=== PATIENT | male | born 1950 | race Caucasian/White ===

== ENCOUNTER 2017-04-14 17:06 | Emergency (ER) | payer MEDICARE ==
[2017-04-14] MEDS ORDERED: Zofran 4 MG/2 ML VIAL IV ONE (17:28)
[2017-04-14] MEDS ORDERED: Sodium Chloride 0.9% 1000 ML 1,000 ML IV STA ×2 (17:28→18:37)
[2017-04-14] MEDS ORDERED: Zofran 4 MG/2 ML VIAL ONE (17:33)
[2017-04-14] MEDS ORDERED: Sodium Chloride 0.9% 1000 ML 1,000 ML ONE ×2 (17:33→18:39)
--- NOTE | 2017-04-14 17:37 | ERPHSYRPT ---
- History of Present Illness Time Seen by Provider: 04/14/17 17:20 Historian: patient Exam Limitations: clinical condition Patient Subjective Stated Complaint: vomiting/diarrhea for three days, also having fever at home. Triage Nursing Assessment: ambulated to room per self. skin w/d, pale. patient retching on arrival. abd soft/ normal bowel sounds. Physician History: PATIENT WITH HISTORY OF TYPE 2 DIABETES AND LEFT NEPHRECTOMY, COMPLAINS OF FREQUENT EPISODES OF EMESIS AND WATERY DIARRHEA X 3-4 DAYS ASSOCIATED WITH GENERALIZED WEAKNESS AND CRAMPY ABDOMINAL PAIN. DENIES FEVER, CHILLS, COUGH OR URINARY SYMPTOMS. Timing/Duration: day(s) Activities at Onset: none Quality: cramping Abdominal Pain Onset Location: generalized abdomen Pain Radiation: no radiation Severity of Pain-Max: moderate Severity of Pain-Current: moderate Modifying Factors: Improves With: vomiting, other (DIARRHEA) Associated Symptoms: fatigue, nausea, vomiting, weakness Previous symptoms: no prior history Allergies/Adverse Reactions: sulfamethoxazole [From Bactrim] Allergy (Mild, Verified 04/14/17 17:17) trimethoprim [From Bactrim] Allergy (Mild, Verified 04/14/17 17:17) Home Medications: Loratadine [Claritin] 10 mg PO DAILY 01/12/13 [History] Metformin HCl 500 mg [Glucophage 500 MG] 500 mg PO DAILY 01/12/13 [History ] Ranitidine HCl [Zantac] 150 mcg PO DAILY PRN 01/12/13 [History] Omeprazole [Prilosec] 1 tab PO DAILY 07/24/15 [History] Hx Tetanus, Diphtheria Vaccination/Date Given: No Hx Influenza Vaccination/Date Given: Yes Hx Pneumococcal Vaccination/Date Given: Yes - Review of Systems Constitutional: Weakness, No Fever, No Chills Eyes: No Symptoms Ears, Nose, & Throat: No Symptoms Respiratory: No Symptoms, No Cough, No Dyspnea Cardiac: No Symptoms, No Chest Pain, No Edema, No Syncope Abdominal/Gastrointestinal: Abdominal Pain, Nausea, Vomiting, Diarrhea Genitourinary Symptoms: No Symptoms, No Dysuria Musculoskeletal: No Back Pain, No Neck Pain Skin: No Symptoms, No Rash Neurological: No Dizziness, No Focal Weakness, No Sensory Changes Psychological: No Symptoms Endocrine: No Symptoms All Other Systems: Reviewed and Negative - Past Medical History Pertinent Past Medical History: Yes Neurological History: No Pertinent History ENT History: Cataracts Cardiac History: No Pertinent History Respiratory History: No Pertinent History Endocrine Medical History: Diabetes Type II Musculoskeletal History: Arthritis GI Medical History: GERD, Hernia, Polyps History: No Pertinent History Psycho-Social History: No Pertinent History Male Reproductive Disorders: No Pertinent History Other Medical History: Hiatal Hernia - Past Surgical History Past Surgical History: Yes Neuro Surgical History: No Pertinent History Cardiac: Cardiac Catheterization Respiratory: No Pertinent History Gastrointestinal: No Pertinent History Genitourinary: Kidney Surgery, Other Musculoskeletal: Orthopedic Surgery Male Surgical History: No Pertinent History Other Surgical History: christen dow only has one kidney,Tonsillectomy. Rotator cuff repair - Social History Smoking Status: Current every day smoker How long have you smoked: 50years Exposure to second hand smoke: Yes Drug Use: none Patient Lives Alone: Yes - Nursing Vital Signs Nursing Vital Signs: Initial Vital Signs Temperature 97.4 F Temperature Source Oral Pulse Rate 80 Respiratory Rate 16 Blood Pressure [] 130/76 Pain Intensity 0 - Physical Exam General Appearance: no apparent distress, alert Eye Exam: PERRL/EOMI, eyes nml inspection Ears, Nose, Throat Exam: normal ENT inspection, pharynx normal, moist mucous membranes Neck Exam: normal inspection, non-tender, supple, full range of motion Respiratory Exam: normal breath sounds, lungs clear, No respiratory distress Cardiovascular Exam: regular rate/rhythm, normal heart sounds Gastrointestinal/Abdomen Exam: soft, normal bowel sounds, tenderness (MINIMAL PERIUMBILICAL TENDERNESS, NO GUARDING OR REBOUND TENDERNESS), No mass Back Exam: normal inspection, normal range of motion, No CVA tenderness, No vertebral tenderness Extremity Exam: normal inspection, normal range of motion, pelvis stable Neurologic Exam: alert, oriented x 3, cooperative, normal mood/affect, nml cerebellar function, sensation nml, No motor deficits Skin Exam: normal color, warm, dry SpO2 Interpretation: normal SpO2: 97 Oxygen Delivery: Room Air - CT Exams Abdomen/Pelvis CT Interpretation: Tele-radiologist Report (THERE IS AN OBSTRUCTING 7.4MM STONE MID RIGHT URETER, AND A 2CM RIGHT RENAL STONE, LEFT NEPHRECTOMY) Ordered Tests: Active Orders 24 hr Category Date Time Status Clean Catch Urine Specimen STAT Care 04/14/17 17:28 Active IV Insertion STAT Care 04/14/17 17:28 Active ABDOMEN AND PELVIS W/0 CONTRAS [CT] Stat Exams 04/14/17 17:29 Taken AMYLASE Stat Lab 04/14/17 17:18 Completed BLOOD CULTURE Stat Lab 04/14/17 17:18 Received CBC W DIFF Stat Lab 04/14/17 17:18 Completed CMP Stat Lab 04/14/17 17:18 Completed CULTURE,URINE Stat Lab 04/14/17 17:46 Received LIPASE Stat Lab 04/14/17 17:18 Completed Lactic Acid Stat Lab 04/14/17 17:45 Results Manual Differential NC Stat Lab 04/14/17 17:18 Completed UA W/ MICROSCOPIC Stat Lab 04/14/17 17:46 Completed Medication Summary Discontinued Medications Generic Name Dose Route Start Last Admin Trade Name Freq PRN Reason Stop Dose Admin Fentanyl Citrate 50 mcg 04/14/17 18:44 04/14/17 18:49 Sublimaze 100 Mcg/2 Ml IV 04/14/17 18:45 50 mcg STAT ONE Administration Fentanyl Citrate Confirm 04/14/17 18:48 Sublimaze 100 Mcg/2 Ml Administered 04/14/17 18:49 Dose 100 mcg .ROUTE .STK-MED ONE Sodium Chloride 1,000 mls @ 999 mls/hr 04/14/17 17:28 04/14/17 17:35 Sodium Chloride 0.9% 1000 Ml IV 04/14/17 18:28 999 mls/hr .Q1H1M STA Administration Sodium Chloride Confirm 04/14/17 17:33 Sodium Chloride 0.9% 1000 Ml Administered 04/14/17 17:34 Dose 1,000 mls @ ud .ROUTE .STK-MED ONE Ceftriaxone Sodium/Dextrose 1 g in 50 mls @ 100 mls/hr 04/14/17 18:09 18:20 Rocephin 1 Gm-D5w 50 Ml Bag IV 04/14/17 18:38 100 mls/hr STAT STA Administration Ceftriaxone Sodium/Dextrose Confirm 04/14/17 18:18 Rocephin 1 Gm-D5w 50 Ml Bag Administered 04/14/17 18:19 Dose 1 g in 50 mls @ ud IV .STK-MED ONE Sodium Chloride 1,000 mls @ 999 mls/hr 04/14/17 18:37 04/14/17 18:39 Sodium Chloride 0.9% 1000 Ml IV 04/14/17 19:37 999 mls/hr .Q1H1M STA Administration Sodium Chloride Confirm 04/14/17 18:39 Sodium Chloride 0.9% 1000 Ml Administered 04/14/17 18:40 Dose 1,000 mls @ ud .ROUTE .STK-MED ONE Ondansetron HCl 4 mg 04/14/17 17:28 04/14/17 17:34 Zofran 4 Mg/2 Ml Vial IV 04/14/17 17:29 4 mg STAT ONE Administration Ondansetron HCl Confirm 04/14/17 17:33 Zofran 4 Mg/2 Ml Vial Administered 04/14/17 17:34 Dose 4 mg .ROUTE .STK-MED ONE Lab/Rad Data: Laboratory Result Diagrams 04/14/17 17:18 04/14/17 17:18 Laboratory Results 04/14/17 04/14/17 04/14/17 Range/Units 17:46 17:45 17:18 WBC (4.0-10.5) K/mm3 RBC (4.1-5.6) M/mm3 Hgb (12.5-18.0) gm/dl Hct (42-50) % MCV (78-100) fl MCH (26-32) pg MCHC (32-36) g/dl RDW (11.5-14.0) % Plt Count (150-450) K/mm3 MPV (6-9.5) fl Sodium 138 (136-145) mEq/L Potassium 3.9 (3.5-5.1) mEq/L Chloride 99 (98-107) mEq/L Carbon Dioxide 27.4 (21-32) mEq/L Anion Gap 15.5 H (5-15) MEQ/L BUN 14 (9-20) mg/dL Creatinine 1.11 (0.55-1.30) mg/dl Estimated GFR > 60 ML/MIN Glucose 191 H (70-110) MG/DL Lactic Acid 2.4 H (0.4-2.0) Calcium 9.1 (8.5-10.1) mg/dL Total Bilirubin 0.70 (0.2-1.0) mg/dL AST 124 H (15-37) U/L ALT 249 H (12-78) U/L Alkaline Phosphatase 317 H (46-116) U/L Serum Total Protein 7.6 (6.4-8.2) gm/dL Albumin 3.4 (3.4-5.0) g/dL Amylase 64 (25-115) U/L Lipase 82 (73-393) U/L Ur Collection Type CCMS Urine Color YELLOW (YELLOW) Urine Appearance CLEAR (CLEAR) Urine pH 5.0 (5-6) Ur Specific Waka 1.030 (1.005-1.025) Urine Protein 30 (Negative) Urine Ketones LARGE-80 (NEGATIVE) Urine Blood 250 (0-5) Vargas/ul Urine Nitrite NEGATIVE (NEGATIVE) Urine Bilirubin NEGATIVE (NEGATIVE) Urine Urobilinogen NORMAL (0-1) mg/dL Ur Leukocyte Esterase NEGATIVE (NEGATIVE) Urine Microscopic RBC >100 (0-2) /HPF Urine Microscopic WBC 10-15 (0-5) /HPF Ur Epithelial Cells RARE (FEW) /HPF Urine Bacteria FEW (NEGATIVE) /HPF Urine Glucose NEGATIVE (NEGATIVE) mg/dL Specimen Received 04-14-17 1800 04/14/17 Range/Units 17:18 WBC 3.5 L (4.0-10.5) K/mm3 RBC 5.48 (4.1-5.6) M/mm3 Hgb 18.1 H (12.5-18.0) gm/dl Hct 51.9 H (42-50) % MCV 94.7 (78-100) fl MCH 33.0 H (26-32) pg MCHC 34.9 (32-36) g/dl RDW 13.0 (11.5-14.0) % Plt Count 44 L (150-450) K/mm3 MPV 12.5 H (6-9.5) fl Sodium (136-145) mEq/L Potassium (3.5-5.1) mEq/L Chloride (98-107) mEq/L Carbon Dioxide (21-32) mEq/L Anion Gap (5-15) MEQ/L BUN (9-20) mg/dL Creatinine (0.55-1.30) mg/dl Estimated GFR ML/MIN Glucose (70-110) MG/DL Lactic Acid (0.4-2.0) Calcium (8.5-10.1) mg/dL Total Bilirubin (0.2-1.0) mg/dL AST (15-37) U/L ALT (12-78) U/L Alkaline Phosphatase (46-116) U/L Serum Total Protein (6.4-8.2) gm/dL Albumin (3.4-5.0) g/dL Amylase (25-115) U/L Lipase (73-393) U/L Ur Collection Type Urine Color (YELLOW) Urine Appearance (CLEAR) Urine pH (5-6) Ur Specific Waka (1.005-1.025) Urine Protein (Negative) Urine Ketones (NEGATIVE) Urine Blood (0-5) Vargas/ul Urine Nitrite (NEGATIVE) Urine Bilirubin (NEGATIVE) Urine Urobilinogen (0-1) mg/dL Ur Leukocyte Esterase (NEGATIVE) Urine Microscopic RBC (0-2) /HPF Urine Microscopic WBC (0-5) /HPF Ur Epithelial Cells (FEW) /HPF Urine Bacteria (NEGATIVE) /HPF Urine Glucose (NEGATIVE) mg/dL Specimen Received - Progress Progress Note: 04/14/17 17:37 PATIENT GIVEN IV FLUIDS NORMAL SALINE 1 LITER BOLUS OVER 1 HOUR X 2 THEN 250MG/ HR, ZOFRAN 4MG IV, FENTANYL 50MCG IV 04/14/17 18:47 AFTER 2 SETS OF BLOOD CULTURES, ROCEPHIN 1GM IVPB Discussed with DrZan: Other (DISCUSSED WITH DR GARCIA AT 1910 OF [facility] ACCEPTS TRANSFER VIA [facility]) - Departure Time of Disposition: 19:43 Departure Disposition: Transfer Clinical Impression: MID RIGHT URETER CALCULUS, DEHYDRATION, INTRACTABLE EMESIS/DIARRHEA, URINARY TRACT INFECTION Condition: Stable Critical Care Time: No Referrals: HARISH BUENROSTRO MD [Primary Care Provider] -
[2017-04-14 17:43] LABS: Mean Cell Volume 94.7 fl (78-100); Mean Platelet Volume 12.5 fl (6-9.5); Platelet Count 44 K/mm3 (150-450); Red Blood Count 5.48 M/mm3 (4.1-5.6); White Blood Count 3.5 K/mm3 (4.0-10.5)
[2017-04-14 17:48] LABS: Lactic Acid 2.4 (0.4-2.0)
[2017-04-14 17:57] LABS: ALBUMIN 3.4 g/dL (3.4-5.0); ALKALINE PHOSPHATASE 317 U/L (46-116); ANION GAP 15.5 MEQ/L (5-15); BLOOD UREA NITROGEN 14 mg/dL (9-20); CHLORIDE 99 mEq/L (98-107); Carbon Dioxide 27.4 mEq/L (21-32); Glucose 191 MG/DL (70-110); LIPASE 82 U/L (73-393); Potassium 3.9 mEq/L (3.5-5.1); SGOT/AST 124 U/L (15-37); SGPT/ALT 249 U/L (12-78); SODIUM 138 mEq/L (136-145); Total Protein 7.6 gm/dL (6.4-8.2)
[2017-04-14 18:00] LABS: Collection Type CCMS; Glucose NEGATIVE (NEGATIVE); Leukocyte Esterase NEGATIVE (NEGATIVE)
[2017-04-14 18:01] LABS: ADD URINE CULTURE? YES (NO); Bacteria FEW /HPF (NEGATIVE); Bilirubin NEGATIVE (NEGATIVE); Blood 250 Ery/ul (0-5); COMPLETE URINE MICROSCOPIC? YES; Epithelial Cells RARE /HPF (FEW)
[2017-04-14] MEDS ORDERED: ROCEPHIN 1 Gm-D5w 50 ml Bag** 1 G/50 ML IVPB IV STA (18:09)
[2017-04-14] MEDS ORDERED: ROCEPHIN 1 Gm-D5w 50 ml Bag** 1 G/50 ML IVPB IV ONE (18:18)
[2017-04-14] MEDS ORDERED: SUBLIMAZE 100 MCG/2 ML IV ONE (18:44)
[2017-04-14] MEDS ORDERED: SUBLIMAZE 100 MCG/2 ML ONE (18:48)
[2017-04-14 19:29] VITALS: BP 130/76; PULSE 80
[2017-04-14 19:41] VITALS: O2SAT 97
[2017-04-14 20:03] LABS: Platelet Estimate DECREASED (NORMAL); Total Cells Counted 100
--- NOTE | 2017-04-15 08:45 | XRAY ---
Indication: Vomiting. Multiple contiguous axial images obtained through the abdomen and pelvis without contrast as ordered. Comparison: None Lung bases demonstrates minimal bibasilar dependent atelectasis and right base calcified granulomas. No infiltrate, consolidation, or effusion. Heart is not enlarged. Small hiatal hernia. There is a 7 mm right mid ureteral calculus, approximately L5 level. Proximal right ureter is mildly distended and there is mild hydronephrosis consistent with partial obstructive uropathy. No perinephric fluid. 2 additional right renal calculi, largest 1.3 cm. Also a 1.2 cm right upper pole exophytic mass, probable cyst. Left kidney surgically absent. Noncontrasted stomach and bowel loops appear nonobstructed. Normal appendix. Scattered descending and sigmoid diverticulosis without diverticulitis. No free fluid/air. Spleen is enlarged measuring 13.5 cm in greatest axial dimension with tiny calcified granulomas. Tiny punctate hepatic calcified granuloma. 1.5 cm left adrenal adenoma. Remaining liver, gallbladder, pancreas, right adrenal gland, and urinary bladder appear unremarkable for noncontrast exam. Mild aortoiliac calcifications without AAA. Osseous structures intact with mild degenerative changes throughout the spine. Impression: 1. 7 mm right mid ureteral calculus producing partial obstruction. Additional right renal calculi and probable exophytic cyst. 2. Colonic diverticulosis without diverticulitis. 3. Incidental hiatal hernia, left adrenal adenoma, splenomegaly, and evidence for old granulomatous disease. Comment: Preliminary interpretation was made by [facility]. No critical discrepancy. CT DI 22.42
== END 2017-04-14 19:51 | disposition short-term general hospital (02) ==
LOC: ED 17:06
DX: N20.1 Calculus of ureter (principal); N39.0 Urinary tract infection, site not specified; E86.0 Dehydration; R11.10 Vomiting, unspecified; R19.7 Diarrhea, unspecified; R53.83 Other fatigue; R53.1 Weakness; R10.9 Unspecified abdominal pain
CPT/HCPCS: 36000; 36415; 74176; 80053; 81000; 82150; 83605; 83690; 85025; 87040; 87086; 96360; 96361; 96365; 96366; 96374; 96375; 99285; J0696; J2405; J3010

== ENCOUNTER 2024-11-09 00:17 | Emergency (ER) | payer MEDICARE, OTHER ==
[2024-11-09 00:42] LABS: Absolute Neutrophil Ct (ANC) 4.43 x10^3/uL (1.78-5.38); BASOPHIL % 0.4 % (0.2-1.2); Basophil (Absolute #) 0.03 x10^3/uL (0.01-0.08); Eosinophil % 3.4 % (0.8-7.0); Eosinophil (Absolute #) 0.24 x10^3/uL (0.04-0.54); Hematocrit 41.5 % (40.1-51.0); Hemoglobin 14.7 g/dL (13.7-17.5); IMMATURE GRAN # 0.03 x10^3u/L (0.001-0.031); IMMATURE GRAN % 0.4 % (0.001-0.429); Lymphocyte (Absolute #) 1.53 x10^3/uL (1.32-3.57); Lymphocytes % 21.6 % (21.8-53.1); Mean Cell Volume 98.1 fL (79.0-92.2); Mean Corpuscular Hemoglobin 34.8 pg (25.7-32.2); Mean Corpuscular Hgb Concent. 35.4 g/dL (32.3-36.5); Monocyte (Absolute #) 0.83 x10^3/uL (0.30-0.82); Monocytes % 11.7 % (5.3-12.2); Neutrophil % 62.5 % (34.0-67.9); Platelet Count 172 x10^3/uL (163-337); Red Blood Count 4.23 x10^6/uL (4.63-6.08); Red Cell Distribution Width 11.7 % (11.6-14.4); White Blood Count 7.1 x10^3/uL (4.23-9.07)
--- NOTE | 2024-11-09 00:46 | ERPHSYRPT ---
- History of Present Illness Time Seen by Provider: 11/09/24 00:23 Source: patient, EMS Exam Limitations: clinical condition Physician History: 74 years old male with history of alcohol abuse, tobacco use, diabetes mellitus, GERD, noncompliant is brought in the ER after patient was found down on the snow right next to his truck by family prior to arrival. Patient reports his family went out to get some food and he tried to walk outside and fell, could not get up. Patient reports drinking heavily for quite some time and last drink was prior to fall. Reports having generalized chest pressure and tightness all day yesterday. No difficulty breathing. Denies hitting his head or loss of consciousness. Denies any neck pain. Denies any abdominal pain but does have 2 episodes of nonprojectile, nonbilious vomiting and route to the ER. Denies any focal numbness tingling or weakness. Moving all 4 extremities. On EMS arrival patient was not totally with it but during my evaluation he is answering all questions appropriately. Allergies/Adverse Reactions: sulfamethoxazole [From Bactrim] Allergy (Mild, Verified 04/14/17 17:17) trimethoprim [From Bactrim] Allergy (Mild, Verified 04/14/17 17:17) Home Medications: Tamsulosin HCl 0.4 mg [Flomax 0.4 MG] 0.4 mg PO DAILY 11/09/24 [History] Hx Tetanus, Diphtheria Vaccination/Date Given: No Hx Influenza Vaccination/Date Given: Yes Hx Pneumococcal Vaccination/Date Given: Yes - Review of Systems Constitutional: Fatigue, Weakness Eyes: No Symptoms Ears, Nose, & Throat: No Symptoms Respiratory: Cough Cardiac: Chest Pain Abdominal/Gastrointestinal: Vomiting Genitourinary Symptoms: No Symptoms Musculoskeletal: Arthralgias Skin: No Symptoms Neurological: No Symptoms Hematologic/Lymphatic: No Symptoms - Past Medical History Pertinent Past Medical History: Yes Neurological History: No Pertinent History ENT History: Cataracts Cardiac History: No Pertinent History Respiratory History: No Pertinent History Endocrine Medical History: Diabetes Type II Musculoskeletal History: Arthritis GI Medical History: GERD, Hernia, Polyps History: No Pertinent History Psycho-Social History: No Pertinent History Male Reproductive Disorders: No Pertinent History Other Medical History: Hiatal Hernia - Past Surgical History Past Surgical History: Yes Neuro Surgical History: No Pertinent History Cardiac: Cardiac Catheterization Respiratory: No Pertinent History Gastrointestinal: No Pertinent History Genitourinary: Kidney Surgery, Other Musculoskeletal: Orthopedic Surgery Male Surgical History: No Pertinent History Other Surgical History: christen dow only has one kidney,Tonsillectomy. Rotator cuff repair - Social History Smoking Status: Current every day smoker How long have you smoked: 50years Exposure to second hand smoke: Yes Drug Use: none Patient Lives Alone: Yes - Nursing Vital Signs Nursing Vital Signs: Initial Vital Signs Temperature 96.0 F 11/09/24 00:34 Pulse Rate 68 11/09/24 00:34 Respiratory Rate 18 11/09/24 00:34 Blood Pressure 125/72 11/09/24 00:34 O2 Sat by Pulse Oximetry 95 11/09/24 00:34 Pain Scale Pain Intensity 0 - [place] Coma Score Best Eye Response ([place]): (4) open spontaneously Best Verbal Response ([place]): (5) oriented Best Motor Response ([place]): (6) obeys commands [place] Total: 15 - Physical Exam General Appearance: no apparent distress, alert Head Injury: no evidence of injury Eye Exam: PERRL/EOMI, eyes nml inspection ENT Exam: airway nml, No evidence of ENT injury Neck Exam: supple, trachea midline, full range of motion, normal alignment, normal inspection Respiratory/Chest Exam: normal breath sounds, No chest tenderness, No respiratory distress Cardiovascular Exam: normal heart sounds, regular rate/rhythm Gastrointestinal Exam: soft, normal bowel sounds, No tenderness Back Exam: normal inspection Extremity Exam: normal inspection, normal range of motion Neurologic Exam: alert, oriented x 3, cooperative, airplane pilot II-XII nml as tested, nml cerebellar function, sensation nml, No normal mood/affect, No motor deficits Skin Exam: normal color SpO2 Interpretation: normal SpO2: 96 O2 Delivery: Room Air - Course EKG Interpreted by Me: RATE (63), Sinus Rhythm, NORMAL AXIS, NORMAL INTERVALS, NORMAL QRS Ordered Tests: Active Orders 24 hr Category Date Time Status EKG-ER Only STAT Care 11/09/24 00:24 Active IV Insertion STAT Care 11/09/24 00:24 Active NPO (ED) STAT Care 11/09/24 00:24 Active ABDOMEN AND PELVIS W/0 CONTRAS [CT] Stat Exams 11/09/24 04:37 Completed CERVICAL SPINE WO CONTRAST [CT] Stat Exams 11/09/24 00:45 Completed CHEST WITHOUT CONTRAST [CT] Stat Exams 11/09/24 00:48 Completed HEAD WITHOUT CONTRAST [CT] Stat Exams 11/09/24 00:45 Completed CBC W DIFF Stat Lab 11/09/24 00:40 Completed CMP Stat Lab 11/09/24 00:40 Completed CULTURE,URINE Stat Lab 11/09/24 03:29 Received ETHYL ALCOHOL Stat Lab 11/09/24 00:40 Completed LIPASE Stat Lab 11/09/24 00:40 Completed Lactic Acid Stat Lab 11/09/24 00:30 Completed Lactic Acid Stat Lab 11/09/24 02:41 Completed MAGNESIUM Stat Lab 11/09/24 00:40 Completed TROPONIN Q4H Lab 11/09/24 00:40 Completed TROPONIN Q4H Lab 11/09/24 04:08 Completed TROPONIN Q4H Lab 11/09/24 08:30 Ordered UA W/RFX UR CULTURE Stat Lab 11/09/24 03:29 Completed Urine Triage Profile Stat Lab 11/09/24 03:29 Completed Medication Summary Generic Name Dose Route Start Last Admin Trade Name Freq PRN Reason Stop Dose Admin Sodium Chloride 1,000 mls @ 100 mls/hr 11/09/24 00:30 11/09/24 05:09 Sodium Chloride 0.9% 1000 Ml IV 12/09/24 00:29 Not Given .Q10H SERGIO Discontinued Medications Generic Name Dose Route Start Last Admin Trade Name Freq PRN Reason Stop Dose Admin Ondansetron HCl 4 mg 11/09/24 00:24 11/09/24 05:08 Ondansetron Hcl 4 Mg/2 Ml Vial IV 11/09/24 00:25 Not Given STAT ONE Lab/Rad Data: Laboratory Result Diagrams 11/09/24 00:40 11/09/24 00:40 Laboratory Results 11/09/24 11/09/24 11/09/24 Range/Units 04:08 03:29 03:29 WBC (4.23-9.07) x10^3/uL RBC (4.63-6.08) x10^6/uL Hgb (13.7-17.5) g/dL Hct (40.1-51.0) % MCV (79.0-92.2) fL MCH (25.7-32.2) pg MCHC (32.3-36.5) g/dL RDW (11.6-14.4) % Plt Count (163-337) x10^3/uL MPV (9.4-12.4) fL Gran % (34.0-67.9) % Immature Gran % (Auto) (0.001-0.429) % Nucleat RBC Rel Count (0.00-0.2) % Eos # (Auto) (0.04-0.54) x10^3/uL Immature Gran # (Auto) (0.001-0.031) x10^3u/L Absolute Lymphs (auto) (1.32-3.57) x10^3/uL Absolute Monos (auto) (0.30-0.82) x10^3/uL Absolute Nucleated RBC (0.00-0.012) x10^3u/L Lymphocytes % (21.8-53.1) % Monocytes % (5.3-12.2) % Eosinophils % (0.8-7.0) % Basophils % (0.2-1.2) % Absolute Granulocytes (1.78-5.38) x10^3/uL Basophils # (0.01-0.08) x10^3/uL Sodium (135-145) mmol/L Potassium (3.5-5.1) mmol/L Chloride (98-107) mmol/L Carbon Dioxide (22-30) mmol/L Anion Gap (5-15) MEQ/L BUN (9-20) mg/dL Creatinine (0.66-1.25) mg/dL Estimated GFR ML/MIN Glucose (74-106) mg/dL Lactic Acid (0.4-2.0) Calcium (8.4-10.2) mg/dL Magnesium (1.6-2.3) mg/dL Total Bilirubin (0.2-1.3) mg/dL AST (17-59) U/L ALT (0-50) U/L Alkaline Phosphatase (38-126) U/L Troponin I < 0.012 (0.000-0.033) ng/mL Serum Total Protein (6.3-8.2) g/dL Albumin (3.5-5.0) g/dL Lipase (23-300) U/L Urine Color Yellow (Yellow) Urine Appearance Clear (Clear) Urine pH 5.5 (4.6-8.0) Ur Specific [place] 1.010 (1.005-1.030) Urine Protein 100 A (Negative) Urine Glucose (UA) Negative (Negative) mg/dL Urine Ketones Trace A (Negative) Urine Blood Trace (Negative) Urine Nitrite Negative (Negative) Urine Bilirubin Negative (Negative) Urine Urobilinogen 0.2 (0.2) mg/dL Ur Leukocyte Esterase Negative (Negative) U Hyaline Cast (Auto) NONE SEEN (0-2) /LPF Urine Microscopic RBC 0-2 (0-5) /HPF Urine Microscopic WBC 3-5 (0-5) /HPF Ur Epithelial Cells None Seen (None Seen) /HPF Urine Bacteria None Seen (None Seen) /HPF Urine Culture Reflexed YES (NO) Urine Opiates Level NEGATIVE (NEGATIVE) Ur Methadone NEGATIVE (NEGATIVE) Urine Barbiturates NEGATIVE (NEGATIVE) Ur Phencyclidine (PCP) NEGATIVE (NEGATIVE) Urine Amphetamine NEGATIVE (NEGATIVE) U Benzodiazepine Level NEGATIVE (NEGATIVE) Urine Cocaine NEGATIVE (NEGATIVE) Urine Marijuana (THC) NEGATIVE (NEGATIVE) Ethyl Alcohol (0-10) mg/dL 11/09/24 11/09/24 11/09/24 Range/Units 02:41 00:40 00:40 WBC (4.23-9.07) x10^3/uL RBC (4.63-6.08) x10^6/uL Hgb (13.7-17.5) g/dL Hct (40.1-51.0) % MCV (79.0-92.2) fL MCH (25.7-32.2) pg MCHC (32.3-36.5) g/dL RDW (11.6-14.4) % Plt Count (163-337) x10^3/uL MPV (9.4-12.4) fL Gran % (34.0-67.9) % Immature Gran % (Auto) (0.001-0.429) % Nucleat RBC Rel Count (0.00-0.2) % Eos # (Auto) (0.04-0.54) x10^3/uL Immature Gran # (Auto) (0.001-0.031) x10^3u/L Absolute Lymphs (auto) (1.32-3.57) x10^3/uL Absolute Monos (auto) (0.30-0.82) x10^3/uL Absolute Nucleated RBC (0.00-0.012) x10^3u/L Lymphocytes % (21.8-53.1) % Monocytes % (5.3-12.2) % Eosinophils % (0.8-7.0) % Basophils % (0.2-1.2) % Absolute Granulocytes (1.78-5.38) x10^3/uL Basophils # (0.01-0.08) x10^3/uL Sodium 130 L (135-145) mmol/L Potassium 3.6 (3.5-5.1) mmol/L Chloride 99 (98-107) mmol/L Carbon Dioxide 21 L (22-30) mmol/L Anion Gap 13.5 (5-15) MEQ/L BUN 8 L (9-20) mg/dL Creatinine 0.70 (0.66-1.25) mg/dL Estimated GFR 95.5 ML/MIN Glucose 147 H (74-106) mg/dL Lactic Acid 3.1 H (0.4-2.0) Calcium 8.4 (8.4-10.2) mg/dL Magnesium 1.8 (1.6-2.3) mg/dL Total Bilirubin 0.50 (0.2-1.3) mg/dL AST 26 (17-59) U/L ALT 21 (0-50) U/L Alkaline Phosphatase 87 (38-126) U/L Troponin I 0.017 (0.000-0.033) ng/mL Serum Total Protein 6.8 (6.3-8.2) g/dL Albumin 3.9 (3.5-5.0) g/dL Lipase 711 H (23-300) U/L Urine Color (Yellow) Urine Appearance (Clear) Urine pH (4.6-8.0) Ur Specific [place] (1.005-1.030) Urine Protein (Negative) Urine Glucose (UA) (Negative) mg/dL Urine Ketones (Negative) Urine Blood (Negative) Urine Nitrite (Negative) Urine Bilirubin (Negative) Urine Urobilinogen (0.2) mg/dL Ur Leukocyte Esterase (Negative) U Hyaline Cast (Auto) (0-2) /LPF Urine Microscopic RBC (0-5) /HPF Urine Microscopic WBC (0-5) /HPF Ur Epithelial Cells (None Seen) /HPF Urine Bacteria (None Seen) /HPF Urine Culture Reflexed (NO) Urine Opiates Level (NEGATIVE) Ur Methadone (NEGATIVE) Urine Barbiturates (NEGATIVE) Ur Phencyclidine (PCP) (NEGATIVE) Urine Amphetamine (NEGATIVE) U Benzodiazepine Level (NEGATIVE) Urine Cocaine (NEGATIVE) Urine Marijuana (THC) (NEGATIVE) Ethyl Alcohol 196 H (0-10) mg/dL 11/09/24 11/09/24 Range/Units 00:40 00:30 WBC 7.1 (4.23-9.07) x10^3/uL RBC 4.23 L (4.63-6.08) x10^6/uL Hgb 14.7 (13.7-17.5) g/dL Hct 41.5 (40.1-51.0) % MCV 98.1 H (79.0-92.2) fL MCH 34.8 H (25.7-32.2) pg MCHC 35.4 (32.3-36.5) g/dL RDW 11.7 (11.6-14.4) % Plt Count 172 (163-337) x10^3/uL MPV 10.0 (9.4-12.4) fL Gran % 62.5 (34.0-67.9) % Immature Gran % (Auto) 0.4 (0.001-0.429) % Nucleat RBC Rel Count 0.0 (0.00-0.2) % Eos # (Auto) 0.24 (0.04-0.54) x10^3/uL Immature Gran # (Auto) 0.03 (0.001-0.031) x10^3u/L Absolute Lymphs (auto) 1.53 (1.32-3.57) x10^3/uL Absolute Monos (auto) 0.83 H (0.30-0.82) x10^3/uL Absolute Nucleated RBC 0.00 (0.00-0.012) x10^3u/L Lymphocytes % 21.6 L (21.8-53.1) % Monocytes % 11.7 (5.3-12.2) % Eosinophils % 3.4 (0.8-7.0) % Basophils % 0.4 (0.2-1.2) % Absolute Granulocytes 4.43 (1.78-5.38) x10^3/uL Basophils # 0.03 (0.01-0.08) x10^3/uL Sodium (135-145) mmol/L Potassium (3.5-5.1) mmol/L Chloride (98-107) mmol/L Carbon Dioxide (22-30) mmol/L Anion Gap (5-15) MEQ/L BUN (9-20) mg/dL Creatinine (0.66-1.25) mg/dL Estimated GFR ML/MIN Glucose (74-106) mg/dL Lactic Acid 3.1 H (0.4-2.0) Calcium (8.4-10.2) mg/dL Magnesium (1.6-2.3) mg/dL Total Bilirubin (0.2-1.3) mg/dL AST (17-59) U/L ALT (0-50) U/L Alkaline Phosphatase (38-126) U/L Troponin I (0.000-0.033) ng/mL Serum Total Protein (6.3-8.2) g/dL Albumin (3.5-5.0) g/dL Lipase (23-300) U/L Urine Color (Yellow) Urine Appearance (Clear) Urine pH (4.6-8.0) Ur Specific [place] (1.005-1.030) Urine Protein (Negative) Urine Glucose (UA) (Negative) mg/dL Urine Ketones (Negative) Urine Blood (Negative) Urine Nitrite (Negative) Urine Bilirubin (Negative) Urine Urobilinogen (0.2) mg/dL Ur Leukocyte Esterase (Negative) U Hyaline Cast (Auto) (0-2) /LPF Urine Microscopic RBC (0-5) /HPF Urine Microscopic WBC (0-5) /HPF Ur Epithelial Cells (None Seen) /HPF Urine Bacteria (None Seen) /HPF Urine Culture Reflexed (NO) Urine Opiates Level (NEGATIVE) Ur Methadone (NEGATIVE) Urine Barbiturates (NEGATIVE) Ur Phencyclidine (PCP) (NEGATIVE) Urine Amphetamine (NEGATIVE) U Benzodiazepine Level (NEGATIVE) Urine Cocaine (NEGATIVE) Urine Marijuana (THC) (NEGATIVE) Ethyl Alcohol (0-10) mg/dL - Progress Progress: improved Progress Note: 11/09/24 06:28 74 years old is evaluated in the ER for a fall on the snow without LOC. Patient is awake alert and oriented and does admit to drinking alcohol heavily for quite some time. No obvious focal neurodeficit EKG is sinus rhythm with no acute ischemic changes. Obtained CT head cervical spine and chest which are negative for any acute trauma findings. Has normal white count, chemistries with mildly low sodium of 130, some element of dehydration and a lipase of 711. I have obtained CT abdomen pelvis which did not show any signs of acute pancreatitis but did show some smudging of the kidney with enlarging stone but no UTI. Troponins are negative x 2. Blood alcohol of 196. I believe patient fall was related to alcohol use. I have discussed the results of workup with patient and family in detail, counseled on alcohol use and outpatient follow-up recommended. Do not think patient needs to be admitted and can be safely discharged 11/09/24 06:31 Counseled pt/family regarding: lab results, diagnosis, need for follow-up, rad results Medical Desision Making - Independent Historian Additional History obtained from: Child, Family, [employer]/EMT - Diagnostic Testing Diagnostic test were ordered, analyzed, and reviewed by me: Yes Radiological Interpretation: Reviewed by me - Risk of complications The pt has a mod risk of morbidity or mortality based on: Need for prescription drug management - Departure Departure Disposition: Home Clinical Impression: Alcohol abuse, Fall, Dehydration, Elevated lipase Condition: Stable Critical Care Time: No Referrals: HARISH BUENROSTRO MD [Primary Care Provider] - Follow up with PCP 1 day Instructions: Alcohol use disorder - Discharge instructions Additional Instructions: Cut down on your drinking, use cane/walker for ambulation to avoid a fall. Follow-up with primary care for reevaluation. Return to ER for any worsening.
[2024-11-09 00:56] LABS: ALBUMIN 3.9 g/dL (3.5-5.0); ANION GAP 13.5 MEQ/L (5-15); BILIRUBIN,TOTAL 0.5 mg/dL (0.2-1.3); Calcium 8.4 mg/dL (8.4-10.2); Creatinine 1 0.7 mg/dL (0.66-1.25); EST GLOMERULAR FILTRATION RATE 95.5 ML/MIN; MAGNESIUM 1.8 mg/dL (1.6-2.3); Potassium 3.6 mmol/L (3.5-5.1); Total Protein 6.8 g/dL (6.3-8.2)
[2024-11-09 01:05] VITALS: RESP 18; TEMP 96
--- NOTE | 2024-11-09 02:05 | XRAY ---
CLINICAL HISTORY: fall COMPARISON: 01/12/2013 17:12:26 CARE TRANSITION COORDINATOR TECHNIQUE: Multiple axial images are obtained from the skull base to the vertex without contrast. CT scan was performed according to ALARA (as low as reasonable achievable). FINDINGS: There is cerebral atrophy. No evidence of space occupying lesion, hemorrhage, edema, mass effect, midline shift, extra axial collection, or hydrocephalus is noted. Basal cisterns are symmetric and normal in size and configuration. There are scattered periventricular hypodensities as can be seen with chronic microvascular ischemic changes. The hurst-white matter differentiation is preserved. Visualized paranasal sinuses and mastoid air cells are well aerated. Orbital contents are within normal limits. Bony structures are intact. IMPRESSION: 1. No evidence of acute intracranial abnormality is demonstrated. 2. Chronic microvascular ischemic changes.- increased compared to prior study. 3. Cerebral atrophy.-increased. Electronically Signed by: Aron Dasilva MD. (11/09/2024 02:00:08 EST)
--- NOTE | 2024-11-09 02:07 | XRAY ---
CLINICAL HISTORY: fall COMPARISON: 01/12/2013 17:15:32 MANAGER INSTRUMENTATION TECHNIQUE: Computed tomography of the cervical spine performed without intravenous contrast. Contiguous axial images were obtained from the skull base to T2, with sagittal and coronal reformatted images reconstructed from the axial data. CT scan was performed according to ALARA (as low as reasonable achievable). FINDINGS: Loss of cervical lordosis - suggest possibility of muscle spasm/positional. Degenerative changes involving cervical spine in the form of multilevel marginal osteophytes, disc space reduction and facetal arthrosis. Posterior uncovertebral arthrosis is noted at C2-C3, C3-C4, C4-C5 ,C5-C6 and C6-C7 levels which indenting ventral thecal sac and causes bilateral neuroforaminal narrowing. Cervical vertebral bodies are normal in height and alignment, with no evidence of fracture or subluxation. Lateral masses of C1 are symmetrical, and the dens is intact. Prevertebral soft tissues are not widened. The remaining suprahyoid and infrahyoid soft tissues in the neck are unremarkable. Thyroid gland appears unremarkable. IMPRESSION: 1.No acute fracture or subluxation in the cervical spine. Cervical spondylosis- slightly increased Electronically Signed by: Aron Dasilva MD. (11/09/2024 02:02:54 EST)
--- NOTE | 2024-11-09 02:09 | XRAY ---
CLINICAL HISTORY: fall, cp COMPARISON: 09/09/2015 08:00:57 CUFF TURNER. TECHNIQUE: Contiguous axial images were obtained from the neck base through the upper abdomen without contrast. In addition, sagittal and coronal reconstructions were performed to potentially increase the sensitivity for the detection of disease. CT scan was performed according to ALARA (as low as reasonable achievable). FINDINGS: Small calcified granuloma involving posterior basal segment of right lower lobe. The lungs are clear, with no focal areas of consolidation. No pulmonary nodules are seen. The central airways are patent. There are no pleural effusions. No pneumothorax is seen. Evaluation of the mediastinum and joan is limited due to the lack of intravenous contrast. No axillary or mediastinal adenopathy is identified. The thyroid is unremarkable. The heart, aorta, and pulmonary arteries are of normal size and configuration. There are no appreciable coronary artery and aortic atherosclerotic calcifications. No pericardial effusion is identified. Imaged portions of the upper abdomen shows a small right renal calculus and multiple calcified splenic granulomas. Old fracture of right 6th rib. IMPRESSION: Small calcified granuloma involving posterior basal segment of right lower lobe.-stable. Old fracture of right 6th rib. No acute abnormality. Electronically Signed by: Aron Dasilva MD. (11/09/2024 02:05:26 EST)
[2024-11-09 03:38] LABS: Appearance Clear (Clear); Bacteria None Seen /HPF (None Seen); Bilirubin Negative (Negative); Blood Trace (Negative); Epithelial Cells None Seen /HPF (None Seen); Glucose, Urine Negative (Negative); Hyaline Casts NONE SEEN /LPF (0-2); Ketones Trace (Negative); Leukocyte Esterase Negative (Negative); Nitrite Negative (Negative); Ph 5.5 (4.6-8.0); Protein,Urine Dip 100 (Negative); RBC 0-2 /HPF (0-5); Urobilinogen 0.2 mg/dL (0.2)
[2024-11-09 03:53] LABS: Amphetamine,Urine NEGATIVE (NEGATIVE); Barbiturate,Urine NEGATIVE (NEGATIVE); Benzodiazepine,Urine NEGATIVE (NEGATIVE); Cocaine,Urine NEGATIVE (NEGATIVE); Methadone,Urine NEGATIVE (NEGATIVE); Opiate,Urine NEGATIVE (NEGATIVE); PCP,Urine NEGATIVE (NEGATIVE); THC,Urine NEGATIVE (NEGATIVE)
[2024-11-09] MEDS: Zofran 4 MG/2 ML VIAL IV ONE (05:08)
[2024-11-09] MEDS: Sodium Chloride 0.9% 1000 ML 1,000 ML IV SCH (05:09)
--- NOTE | 2024-11-09 05:49 | XRAY ---
CLINICAL HISTORY: Rule out acute pancreatitis COMPARISON: Comparison is made with 06/14/2018 TECHNIQUE: Non-contrast CT of the abdomen and pelvis was performed, with the following protocol: axial images, and reconstructed coronal and sagittal images. One of the following dose reduction techniques was utilized for this exam: Automated exposure control, adjustment of the mA and/or kV according to patient size, and use of iterative reconstruction. FINDINGS: Abdomen: Liver: Normal in size, shape, and density. No focal lesions, cysts, or masses were identified. Gallbladder and Biliary System: The gallbladder is normal in size and shape. No wall thickening, pericholecystic fluid, or gallstones were identified. Pancreas: Pancreatic head, body, and tail are visualized and appear normal in size and density. No pancreatic masses or calcifications were noted. Clear brenda-pancreatic fat without signs of inflammation. Spleen: Multiple splenic parenchyma tiny calcifications possibly old granulomatous Kidneys and Adrenal Glands: Still seen multiple dense calculi and plicating right renal lower calyceal group in the upper calyceal group with the largest one is a staghorn measures about 2.[address] attenuation 790 Hounsfield attenuation. They show size progression compared to the previous study with the progression of the perinephric fat smudging raising the possibility of inflammatory changes The right ureter is slightly prominent down to right ureteric junction without distal obstructing stone Stable right renal small exophytic cortical cyst Bosniak 1 measures about 1 cm Left kidney is surgically removed Small bilateral adrenal nodules stable since last study likely adenomas. Appendix: No signs of acute appendicitis or collections. Abdominal Aorta and Vessels: Atheromatous calcifications of the aorta Pelvis: Urinary Bladder: Normal in contour and wall thickness. No intraluminal lesions. Enlarged prostate indenting the urinary bladder base Bilateral inguinal hernias containing defect Multiple pelvic phleboli. Peritoneal and Retroperitoneal Structures: No free fluid or abnormal fluid collections were identified within the abdomen or pelvis. No lymphadenopathy was noted. Bowel: The visualized bowel loops are normal in caliber and appearance. No evidence of bowel obstruction or wall thickening. Bones and Soft Tissues: Pelvic bones and soft tissues are unremarkable. No fractures or abnormal masses were identified. IMPRESSION: 1. Size progression of the right renal calculi and the perirenal fat smudging possibly inflammatory, clinical and laboratory correlation is advised 2. Surgical removal of the left kidney 3. The rest of the study findings are stable Electronically Signed by: Ryann Yates MD. (11/09/2024 05:46:29 EST)
[2024-11-09 06:33] VITALS: O2SAT 96
[2024-11-09 06:45] VITALS: BP 134/84; PULSE 82
== END 2024-11-09 06:54 | disposition home or self-care (01) ==
LOC: ED 00:17
DX: F10.10 Alcohol abuse, uncomplicated (principal); Y90.6 Blood alcohol level of 120-199 mg/100 ml; E86.0 Dehydration; R74.8 Abnormal levels of other serum enzymes; W00.0XXA Fall on same level due to ice and snow, initial encounter; R07.9 Chest pain, unspecified; R11.2 Nausea with vomiting, unspecified; E11.9 Type 2 diabetes mellitus without complications; Z79.899 Other long term (current) drug therapy; Z72.0 Tobacco use
CPT/HCPCS: 36415; 70450; 71250; 72125; 74176; 80053; 80307; 81001; 82077; 83605; 83690; 83735; 84484; 85025; 87086; 93005; 99284; 99285